=== PATIENT | female | born 1975 | race Caucasian/White ===

== ENCOUNTER → 2016-04-17 | Outpatient (CLI) | payer OTHER ==
[~2016-04-17] MED LIST: CALC-80 PO; FLUO20CA25 PO; MULT-608 PO
--- OUTSIDE RECORDS SUMMARY | 2016-04-17 08:43 | XMS REPORT | Continuity of Care Document ---
Author Author [facility] Organization [facility] Address Unknown Phone Unavailable Allergies Active Description Code Type Severity Reaction Onset Reported/Identified Relationship to Patient Clinical Status Yes No Known Drug Allergies [id number] Drug Allergy Unknown N/ A 07/26/2007 Medications Problems Date Dx Coded Attending Type Code Diagnosis Diagnosed By 01/18/1423 ALYSE SHARMA DO Ot M75.02 ADHESIVE CAPSULITIS OF LEFT SHOULDER 01/18/1423 ALYSE SHARMA DO Ot M75.42 IMPINGEMENT SYNDROME OF LEFT SHOULDER 04/21/2011 Ot 278.01 04/21/2011 Ot 530.81 04/21/2011 Ot 721.90 04/21/2011 Ot V85.41 05/03/2012 Ot V16.0 05/03/2012 Ot V18.51 05/03/2012 Ot V76.51 06/02/2014 GAGE NEGRO, REBECCA Jimenez Ot 579.9 06/02/2014 GAGE NEGRO, REBECCA Jimenez Ot 780.52 06/02/2014 GAGE NEGRO, REBECCA Jimenez Ot 780.79 06/02/2014 GAGE NEGRO, REBECCA Jimenez Ot V58.69 06/02/2014 GAGE NEGRO, REBECCA Jimenez Ot V72.62 03/11/2015 Ot 553.3 03/11/2015 Ot 780.79 03/11/2015 Ot 278.01 03/11/2015 Ot 530.81 03/11/2015 Ot 715.90 03/11/2015 Ot 791.9 03/11/2015 Ot V72.63 03/11/2015 Ot V72.81 03/11/2015 Ot V74.8 03/11/2015 Ot V72.84 03/11/2015 GA NEGRO, RENETTA Fam Ot V76.12 03/11/2015 GAGE NEGRO, REBECCA Jimenez Ot 579.9 03/11/2015 GAGE NEGRO, REBECCA Jimenez Ot 780.52 03/11/2015 GAGE NEGRO, REBECCA Jimenez Ot 780.79 03/11/2015 GAGE NEGRO, REBECCA Jimenez Ot V58.69 03/11/2015 GAGE NEGRO, REBECCA Jimenez Ot V72.62 03/15/2015 Ot 553.3 03/15/2015 Ot 780.79 03/15/2015 Ot 278.01 03/15/2015 Ot 530.81 03/15/2015 Ot 715.90 03/15/2015 Ot 791.9 03/15/2015 Ot V72.63 03/15/2015 Ot V72.81 03/15/2015 Ot V74.8 03/15/2015 Ot V72.84 03/15/2015 GA NEGRO, RENETTA Fam Ot V76.12 03/15/2015 GAGE NEGRO, REBECCA Jimenez Ot 579.9 03/15/2015 GAGE NEGRO, REBECCA Jimenez Ot 780.52 03/15/2015 GAGE NEGRO, REBECCA Jimenez Ot 780.79 03/15/2015 GAGE NEGRO, REBECCA Jimenez Ot V58.69 03/15/2015 GAGE NEGRO, REBECCA Jimenez Ot V72.62 03/15/2015 ZACHARY DO, ALYSE F Ot M75.02 03/24/2015 ZACHARY DO, ALYSE F Ot M75.02 04/02/2015 ZACHARY DO, ALYSE F Ot M75.02 04/02/2015 ZACHARY DO, ALYSE F Ot M75.42 04/14/2015 ZACHARY DO, ALYSE F Ot M75.02 04/14/2015 ZACHARY DO, ALYSE F Ot M75.42 05/05/2015 ZACHARY DO, ALYSE F Ot M75.02 05/05/2015 ZACHARY DO, ALYSE F Ot M75.42 06/04/2015 ZACHARY DO, ALYSE F Ot M75.02 ADHESIVE CAPSULITIS OF LEFT SHOULDER 06/04/2015 ZACHARY DO, ALYSE F Ot M75.42 IMPINGEMENT SYNDROME OF LEFT SHOULDER Procedures Results Encounters ACCT No. Visit Date/Time Discharge Status Pt. Type Provider Facility Loc./Unit Complaint [id number] 06/04/2015 13:36:00 2015 14:24:00 DIS Outpatient ALYSE SHARMA DO F [facility] REHAB [id number] 05/15/2014 08:19:00 2014 23:59:59 CLS Outpatient GAGE NEGRO, REBECCA Jimenez [facility] LAB [id number] 12/21/2013 13:55:00 2013 23:59:59 CLS Outpatient [id number] 12/04/2013 13:18:00 2013 23:59:59 CLS Outpatient GA NEGRO, RENETTA Fam [facility] RAD [id number] 03/11/2015 08:12:00 ACT Outpatient ALYSE SHARMA DO [facility] RAD [id number] 05/03/2012 08:34:00 Document Registration [id number] 05/01/2012 07:45:00 Document Registration [id number] 04/20/2011 05:42:00 Document Registration [id number] 04/13/2011 14:47:00 Document Registration [id number] 03/24/2011 10:10:00 Document Registration [id number] 02/28/2011 08:25:00 Document Registration
--- NOTE | 2016-04-19 20:05 | Diagnostic Imaging Report ---
Bilateral screening mammogram. The current study was also evaluated with a Computer Aided Detection (CAD) system. INDICATION: Screening. No current complaints stated on the questionnaire. COMPARISON: 12/04/2013. FINDINGS: The breasts are composed of heterogeneously dense parenchyma which may decrease mammographic sensitivity. Benign-appearing calcifications are seen. Allowing for technique and positional differences, no suspicious change is seen. IMPRESSION: No significant change. ACR BI-RADS Category 2: Benign findings. Result letter will be mailed to the patient. Note: At least 10% of breast cancer is not imaged by mammography. Dictated by: Dictated on workstation # [id number]
== END ==
LOC: RAD 08:40
PROVIDERS: ATTEND Obstetrics & Gynecology
DX: Z12.31 Encounter for screening mammogram for malignant neoplasm of breast (principal)
CPT/HCPCS: 77067

== ENCOUNTER → 2017-09-12 | Outpatient (CLI) | payer OTHER ==
--- NOTE | 2017-09-13 14:45 | Diagnostic Imaging Report ---
INDICATION: Digital mammogram bilateral screening with 3-D tomosynthesis. This study was compared to the prior exams of 04/17/16 and 12/04/13. At this time, there are no current complaints. The current study was also evaluated with a Computer Aided Detection (CAD) system. FINDINGS: The fibroglandular tissue in both breasts is heterogeneously dense. This does limit the sensitivity of this exam. Overall, there does not appear to have been any significant change when compared to the prior study. No primary or secondary sign of malignancy is noted. 3D tomographic images fail to show any sign of malignancy. IMPRESSION: There is no radiographic evidence for malignancy. ACR BI-RADS Category 1: Negative. Result letter will be mailed to the patient. Note: At least 10% of breast cancer is not imaged by mammography. Dictated by: Dictated on workstation # [id number]
== END ==
LOC: RAD 11:08
PROVIDERS: ATTEND Obstetrics & Gynecology
DX: Z12.31 Encounter for screening mammogram for malignant neoplasm of breast (principal)
CPT/HCPCS: 77067

== ENCOUNTER → 2020-05-28 | Outpatient (CLI) | payer OTHER ==
--- NOTE | 2020-05-28 14:49 | Diagnostic Imaging Report ---
PROCEDURE: Pelvic comp/transvaginal sonogram. TECHNIQUE: Complete transabdominal and transvaginal pelvic ultrasound was performed. In addition, limited pelvic Doppler was performed. INDICATION: Abnormal uterine bleeding. Uterus is anteverted measuring 10.0 x 4.7 x 6.5 cm. Endometrium is 5 mm in thickness. No myometrial mass is detected. Right ovary measures 3.0 x 2.1 x 3.5 cm and the left ovary measures 2.4 x 2.7 x 2.8 cm. There is blood flow to both ovaries. No adnexal mass or free fluid is detected. IMPRESSION: Unremarkable transabdominal and transvaginal pelvic ultrasound. Dictated by: Dictated on workstation # [id number]
--- NOTE | 2020-05-28 18:50 | Diagnostic Imaging Report ---
INDICATION: Routine screening. Comparison is made with prior mammogram 09/12/2017 and 04/17/2016. 2-D and 3-D bilateral screening mammography was performed with CAD. The current study was also evaluated with a Computer Aided Detection (CAD) system. 3-D tomosynthesis was also performed and reviewed. Both breasts are heterogeneously dense, limiting sensitivity of mammography. The parenchymal pattern is stable. No mass or malignant appearing microcalcifications are seen. Axillae are unremarkable. IMPRESSION: No mammographic features suspicious for malignancy are identified. ACR BI-RADS Category 1: Negative. Result letter will be mailed to the patient. Note: At least 10% of breast cancer is not imaged by mammography. Dictated by: Dictated on workstation # [id number]
== END ==
LOC: RAD 08:51
PROVIDERS: ATTEND Obstetrics & Gynecology
DX: Z12.31 Encounter for screening mammogram for malignant neoplasm of breast (principal); N93.9 Abnormal uterine and vaginal bleeding, unspecified
CPT/HCPCS: 76830; 76856; 77063; 77067

== ENCOUNTER → 2021-07-13 | Outpatient (CLI) | payer OTHER ==
--- NOTE | 2021-07-13 13:30 | Diagnostic Imaging Report ---
Indication: Routine screening. Comparison is made with prior mammogram from 05/28/2020 and 09/12/2017. 2-D and 3-D bilateral screening mammography was performed with CAD. CAD is utilized. The current study was also evaluated with a Computer Aided Detection (CAD) system. Both breasts are heterogeneously dense, limiting the sensitivity of mammography. The parenchymal pattern is stable. No mass or malignant-appearing microcalcifications are seen. There is a benign calcifications in the right breast. Axillae are unremarkable. IMPRESSION: BI-RADS Category 2 No mammographic features suspicious for malignancy are identified. ACR BI-RADS Category 2: Benign findings. Result letter will be mailed to the patient. Note: At least 10% of breast cancer is not imaged by mammography. Dictated by: Dictated on workstation # [id number]
== END ==
LOC: RAD 10:22
PROVIDERS: ATTEND Obstetrics & Gynecology
DX: Z12.31 Encounter for screening mammogram for malignant neoplasm of breast (principal)
CPT/HCPCS: 77063; 77067